=== PATIENT | male | born 1975 | race Caucasian/White ===

== ENCOUNTER 2017-10-31 22:57 | Emergency (ER) | payer OTHER ==
[~2017-10-31 22:57] MED LIST: CALC500T6 PO; DIPH-740 PO; IBUP200C71 PO; MULT1TAB64 PO; QUET25TA30 PO
--- NOTE | 2017-10-31 23:02 | ER Report ---
History and Physical Time Seen By MD: 23:01 HPI/ROS CHIEF COMPLAINT: Right lower quadrant pain HISTORY OF PRESENT ILLNESS: 42-year-old male presents ambulatory to the ER complaining of severe right lower quadrant abdominal pain sudden onset 45 minutes prior to arrival. Patient was in the bathroom, had a bowel movement. And then had a sudden onset upon getting up of sudden sharp right lower quadrant abdominal pain. Patient had drenching sweats and nausea. He had some dry heaves. Patient's concerned he may have appendicitis. Patient notes the pain radiates to his right flank. REVIEW OF SYSTEMS: Respiratory: No cough, no dyspnea. Cardiovascular: No chest pain, no palpitations. Gastrointestinal: As above Musculoskeletal: As above Allergies: Coded Allergies: No Known Drug Allergies (Unverified , 10/31/17) Home Meds Active Scripts Tamsulosin Hcl (FLOMAX) 0.4 Mg Cap.er.24h, 0.4 MG PO QHS for ureteral relaxation , #15 CAP Prov:RHONDA SHANKAR DO 11/01/17 Ondansetron (ZOFRAN ODT) 4 Mg Tab.rapdis, 4 MG PO every 6 hours Y for NAUSEA/ VOMITING, #12 TAB TAKE 1 TABLET BY MOUTH EVERY 12 HOURS Prov:RHONDA SHANKAR DO 11/01/17 Hydrocodone Bit/Acetaminophen (NORCO 5-325 TABLET) 1 Each Tablet, 1-2 EACH PO Q4H Y for PAIN, #15 TAB Prov:RHONDA SHANKAR DO 11/01/17 Discontinued Reported Medications Ibuprofen (IBUPROFEN) 200 Mg Capsule, 1 CAP PO Q6H, CAPSULE 10/30/16 Calcium Carbonate (CALCIUM) 500 Mg Tablet, 500 MG PO 10/30/16 Multivitamin (MULTI VITAMIN DAILY) 1 Each Tablet, 1 EACH PO 10/30/16 Diphenhydramine Hcl (BENADRYL) 25 Mg Capsule, 25 MG PO Q6-8H, CAPSULE 10/30/16 Quetiapine Fumarate (SEROQUEL) 25 Mg Tablet, 25 MG PO 10/30/16 Reviewed Nurses Notes: Yes Old Medical Records Reviewed: Yes Constitutional Vital Sign - Last 24 Hours 10/31/17 10/31/17 10/31/17 10/31/17 23:03 23:03 23:20 23:27 Temp 97.7 Pulse 60 53 Resp 16 B/P (MAP) 165/88 (113) 165/88 155/86 (109) Pulse Ox 99 93 O2 Delivery Room Air 10/31/17 10/31/17 10/31/17 10/31/17 23:30 23:35 23:45 23:50 Pulse 54 60 B/P (MAP) 153/94 (113) 123/87 (99) Pulse Ox 96 94 10/31/17 11/01/17 11/01/17 11/01/17 23:55 00:15 00:20 00:30 Pulse 70 61 B/P (MAP) 151/77 (101) 128/93 (105) Pulse Ox 94 96 11/01/17 11/01/17 11/01/17 11/01/17 00:35 00:40 00:52 00:55 Pulse 58 58 57 B/P (MAP) 141/85 (103) Pulse Ox 92 93 94 11/01/17 01:00 B/P (MAP) 132/83 (99) Physical Exam General Appearance: The patient is alert, has no immediate need for airway protection and no current signs of toxicity. Slightly pale appearing, vital signs stable, mildly tachycardic, afebrile, pulse ox normal HEENT: Pupils equal and round no injection. TMs normal, oropharynx without redness or exudate Respiratory: Chest is non tender, lungs are clear to auscultation. Cardiac: regular rate and rhythm Gastrointestinal: Abdomen is soft and non tender, no masses, bowel sounds normal. Musculoskeletal: Neck: Neck is supple and non tender. Extremities have full range of motion and are non tender. Skin: No rashes or lesions. DIFFERENTIAL DIAGNOSIS: After history and physical exam differential diagnosis was considered for flank pain including but not limited to musculoskeletal causes, kidney stone, pyelonephritis, shingles, and intra-abdominal causes such as diverticulitis and appendicitis. Additionally,abdominal pain including but not limited to appendicitis, cholecystitis, gastritis and urinary tract infection. Medical Decision Making Data Points Result Diagram: 10/31/172 10/31/172 Laboratory Hematology Test 10/31/17 23:12 10/31/17 23:31 Red Blood Count 5.68 M/uL (4.00-5.60) Mean Corpuscular Volume 85.2 fL (80.0-96.0) Mean Corpuscular Hemoglobin 29.5 pg (26.0-33.0) Mean Corpuscular Hemoglobin Concent 34.6 g/dL (32.0-36.0) Red Cell Distribution Width 12.5 % (11.5-14.5) Mean Platelet Volume 8.8 fL (7.2-11.1) Neutrophils (%) (Auto) 53.7 % (39.4-72.5) Lymphocytes (%) (Auto) 37.6 % (17.6-49.6) Monocytes (%) (Auto) 6.6 % (4.1-12.4) Eosinophils (%) (Auto) 1.3 % (0.4-6.7) Basophils (%) (Auto) 0.8 % (0.3-1.4) Nucleated RBC Relative Count (auto) 0.0 /100WBC Neutrophils # (Auto) 8.0 K/uL (2.0-7.4) Lymphocytes # (Auto) 5.6 K/uL (1.3-3.6) Monocytes # (Auto) 1.0 K/uL (0.3-1.0) Eosinophils # (Auto) 0.2 K/uL (0.0-0.5) Basophils # (Auto) 0.1 K/uL (0.0-0.1) Nucleated RBC Absolute Count (auto) 0.00 K/uL Sodium Level 141 mmol/L (137-145) Potassium Level 3.5 mmol/L (3.5-5.0) Chloride Level 100 mmol/L (98-107) Carbon Dioxide Level 26 mmol/L (22-30) Blood Urea Nitrogen 18 mg/dl (9-21) Creatinine 1.20 mg/dl (0.66-1.25) Glomerular Filtration Rate Calc > 60.0 Random Glucose 133 mg/dl (75-110) Calcium Level 10.7 mg/dl (8.4-10.2) Total Bilirubin 0.8 mg/dl (0.2-1.3) Aspartate Amino Transf (AST/SGOT) 20 U/L (0-35) Alanine Aminotransferase (ALT/SGPT) 35 U/L (0-56) Alkaline Phosphatase 63 U/L (0-126) Total Protein 7.8 gm/dl (6.3-8.2) Albumin 4.7 g/dl (3.5-5.0) Amylase Level 97 U/L (0-110) Lipase 152 U/L (23-300) Urine Color Yellow Urine Clarity Clear Urine pH 5.0 pH (4.8-9.5) Urine Specific [place] 1.015 Urine Protein Negative mg/dL (NEGATIVE) Urine Glucose (UA) Negative mg/dL (NEGATIVE) Urine Ketones Negative mg/dL (NEGATIVE) Urine Blood Moderate (NEGATIVE) Urine Nitrite Negative (NEGATIVE) Urine Bilirubin Negative (NEGATIVE) Urine Urobilinogen Negative mg/dL (0.2-1.9) Urine Leukocyte Esterase Negative (NEGATIVE) Urine RBC 141 /HPF (0-2/HPF) Urine WBC 1 /HPF (0-5/HPF) Urine Squamous Epithelial Cells None /LPF (</=FEW) Urine Bacteria Negative /HPF (NONE-FEW) Urine Mucus None /HPF (NONE-FEW) Chemistry Test 10/31/17 23:12 10/31/17 23:31 White Blood Count 14.9 k/uL (4.5-11.0) Red Blood Count 5.68 M/uL (4.00-5.60) Hemoglobin 16.8 g/dL (14.0-18.0) Hematocrit 48.4 % (42.0-52.0) Mean Corpuscular Volume 85.2 fL (80.0-96.0) Mean Corpuscular Hemoglobin 29.5 pg (26.0-33.0) Mean Corpuscular Hemoglobin Concent 34.6 g/dL (32.0-36.0) Red Cell Distribution Width 12.5 % (11.5-14.5) Platelet Count 334 K/uL (150-450) Mean Platelet Volume 8.8 fL (7.2-11.1) Neutrophils (%) (Auto) 53.7 % (39.4-72.5) Lymphocytes (%) (Auto) 37.6 % (17.6-49.6) Monocytes (%) (Auto) 6.6 % (4.1-12.4) Eosinophils (%) (Auto) 1.3 % (0.4-6.7) Basophils (%) (Auto) 0.8 % (0.3-1.4) Nucleated RBC Relative Count (auto) 0.0 /100WBC Neutrophils # (Auto) 8.0 K/uL (2.0-7.4) Lymphocytes # (Auto) 5.6 K/uL (1.3-3.6) Monocytes # (Auto) 1.0 K/uL (0.3-1.0) Eosinophils # (Auto) 0.2 K/uL (0.0-0.5) Basophils # (Auto) 0.1 K/uL (0.0-0.1) Nucleated RBC Absolute Count (auto) 0.00 K/uL Glomerular Filtration Rate Calc > 60.0 Calcium Level 10.7 mg/dl (8.4-10.2) Total Bilirubin 0.8 mg/dl (0.2-1.3) Aspartate Amino Transf (AST/SGOT) 20 U/L (0-35) Alanine Aminotransferase (ALT/SGPT) 35 U/L (0-56) Alkaline Phosphatase 63 U/L (0-126) Total Protein 7.8 gm/dl (6.3-8.2) Albumin 4.7 g/dl (3.5-5.0) Amylase Level 97 U/L (0-110) Lipase 152 U/L (23-300) Urine Color Yellow Urine Clarity Clear Urine pH 5.0 pH (4.8-9.5) Urine Specific [place] 1.015 Urine Protein Negative mg/dL (NEGATIVE) Urine Glucose (UA) Negative mg/dL (NEGATIVE) Urine Ketones Negative mg/dL (NEGATIVE) Urine Blood Moderate (NEGATIVE) Urine Nitrite Negative (NEGATIVE) Urine Bilirubin Negative (NEGATIVE) Urine Urobilinogen Negative mg/dL (0.2-1.9) Urine Leukocyte Esterase Negative (NEGATIVE) Urine RBC 141 /HPF (0-2/HPF) Urine WBC 1 /HPF (0-5/HPF) Urine Squamous Epithelial Cells None /LPF (</=FEW) Urine Bacteria Negative /HPF (NONE-FEW) Urine Mucus None /HPF (NONE-FEW) Urinalysis Test 10/31/17 23:31 Urine Color Yellow Urine Clarity Clear Urine pH 5.0 pH (4.8-9.5) Urine Specific [place] 1.015 Urine Protein Negative mg/dL (NEGATIVE) Urine Glucose (UA) Negative mg/dL (NEGATIVE) Urine Ketones Negative mg/dL (NEGATIVE) Urine Blood Moderate (NEGATIVE) Urine Nitrite Negative (NEGATIVE) Urine Bilirubin Negative (NEGATIVE) Urine Urobilinogen Negative mg/dL (0.2-1.9) Urine Leukocyte Esterase Negative (NEGATIVE) Urine RBC 141 /HPF (0-2/HPF) Urine WBC 1 /HPF (0-5/HPF) Urine Squamous Epithelial Cells None /LPF (</=FEW) Urine Bacteria Negative /HPF (NONE-FEW) Urine Mucus None /HPF (NONE-FEW) EKG/Imaging Imaging Results: CT scan of the abdomen and pelvis with IV contrast was obtained. The results of the study are CT of the abdomen and pelvis with contrast: Indication: Right lower quadrant pain and hematuria. Technique: Helical CT was performed through the abdomen and pelvis following IV contrast enhancement with 75 cc of Isovue-370. Multiplanar reconstructions are reviewed. One of the following dose optimization techniques was utilized in the performance of this exam: Automated exposure control; adjustment of the mA and/ or kV according to the patient's size; or use of an iterative reconstruction technique. Specific details can be referenced in the facility's radiology CT exam operational policy. Comparison: None. Lower lung ferrell: No parenchymal or pleural abnormality is identified. Liver: Enlarged. The right lobe measures 20.3 cm. There is diffuse mild atrophy infiltration. No focal liver lesions are identified. There is uniform enhancement of the venous structures. Gallbladder/biliary tree: The gallbladder is normal in size and homogeneous in density. The bile ducts are normal in caliber. Pancreas: Normal in size, shape, and density. Spleen: Normal in size, shape, and density. Adrenal glands: Within normal limits. Kidneys/urinary bladder: There is a 3 x 3 mm calculus in the distal right ureter close to the ureterovesical junction, with mild ureteral obstruction. No additional calculi are identified in the right ureter or kidney. The right kidney appears unremarkable. There is a 5 x 3 mm calculus in the proximal left ureter, without signs of significant obstruction. An additional tiny nonobstructing calculus is present in the left kidney. The left kidney is otherwise unremarkable. The bladder appears homogeneous and unremarkable. Intestinal structures: Unremarkable, as visualized. There are no signs of obstruction or acute inflammatory changes. The appendix appears normal. Pelvis: Otherwise unremarkable. Aorta and vascular structures: Within normal limits. Ascites or fluid collections: None seen. Skeletal structures: There is a chronic appearing mild compression deformity of the T12 vertebral body. No acute skeletal deformity is clearly identified. Impression: Bilateral ureteral calculi, as described above. There is evidence of mild obstruction on the right. The appendix appears normal. The study was read by the radiologist. I viewed the images myself on the PACS system. ED Course/Re-evaluation Clinical Indication for ER IV: Hydration, IV Access ED Course Patient was admitted to an examination room. H&P was done. The dental diagnoses was considered. Patient with severe flank and right lower quadrant pain, sudden onset 45 minutes prior to arrival. The patient has a renal stone. Do not think appendicitis, with 45 minutes of pain. Does have severe nausea but no vomiting. Patient has no previous medical history or history abdominal surgeries. Patient's treated with peripheral IV. He is medicated with Zofran, Toradol, Dilaudid. Diagnostic studies show microscopic hematuria and a white blood cell count of nearly 15,000. Patient sent for a CT scan of the abdomen and pelvis with IV contrast. It shows a 3 mm stone at the UVJ on the right with mild hydronephrosis. Patient also has stones noted in the left ureter and kidney without evidence of obstruction. Patient be discharged home on Zofran and [place]. Patient is also given a prescription for Flomax. He is advised to follow-up with urology if unimproved. Decision to Disposition Date: November 01, 2017 Decision to Disposition Time: 00:58 Depart Departure Latest Vital Signs Vital Signs Date Time Temp Pulse Resp B/P (MAP) Pulse Ox O2 Delivery O2 Flow Rate FiO2 11/01/17 01:00 132/83 (99) 11/01/17 00:55 57 94 10/31/17 23:03 97.7 16 Room Air Impression: Primary Impression: Renal colic on right side Additional Impression: Kidney stone Condition: Improved Disposition: HOME OR SELF-CARE New Scripts Tamsulosin Hcl (FLOMAX) 0.4 Mg Cap.er.24h 0.4 MG PO QHS for ureteral relaxation, #15 CAP Prov: RHONDA SHANKAR DO 11/01/17 Ondansetron (ZOFRAN ODT) 4 Mg Tab.rapdis 4 MG PO every 6 hours Y for NAUSEA/VOMITING, #12 TAB TAKE 1 TABLET BY MOUTH EVERY 12 HOURS Prov: RHONDA SHANKAR DO 11/01/17 Hydrocodone Bit/Acetaminophen (NORCO 5-325 TABLET) 1 Each Tablet 1-2 EACH PO Q4H Y for PAIN, #15 TAB Prov: RHONDA SHANKAR DO 11/01/17 Patient Instructions: Kidney Stones (ED) Additional Instructions: Take ibuprofen 200 mg 3 tablets 3 times a day for inflammatory pain relief Follow-up with urology if unimproved in 3-5 days. Problem Qualifiers RHONDA SHANKAR DO October 31, 2017 23:02
[2017-10-31] MEDS ORDERED: NS(*) 0.9% 1000 ML BAG 1,000 ML IV ONE (23:08)
[2017-10-31] MEDS ORDERED: ONDANSETRON 4 MG/2 ML VIAL IVP ONE (23:10)
[2017-10-31] MEDS ORDERED: KETOROLAC 30 MG/ML VIAL IVP ONE (23:10)
[2017-10-31] MEDS ORDERED: HYDROmorphone* 1 MG/ML 1 MG/ML ML IVP ONE (23:10)
[2017-10-31 23:20] LABS: PLATELET COUNT, AUTOMATED 334 K/uL (150-450)
[2017-11-01] MEDS ORDERED: IOPAMIDOL 76% 75 ML INFUS BTL 75 ML ONE (00:01)
[2017-11-01] MEDS ORDERED: HYDROmorphone* 1 MG/ML 1 MG/ML ML IVP ONE (00:50)
--- NOTE | 2017-11-01 00:50 | RADIOLOGY IMAGING REPORT ---
FACILITY: [facility] - [place] PATIENT NAME: Davon Hall : 1975 MR: [id number] V: [id number] EXAM DATE: ORDERING PHYSICIAN: RHONDA SHANKAR TECHNOLOGIST: Location: [facility] - [place] Patient: Davon Hall : 1975 Visit/Account:[id number] Date of Sevice: 10/31/2017 CT of the abdomen and pelvis with contrast: Indication: Right lower quadrant pain and hematuria. Technique: Helical CT was performed through the abdomen and pelvis following IV contrast enhancement with 75 cc of Isovue-370. Multiplanar reconstructions are reviewed. One of the following dose optimization techniques was utilized in the performance of this exam: Autom ated exposure control; adjustment of the mA and/or kV according to the patient's size; or use of an i terative reconstruction technique. Specific details can be referenced in the facility's radiology C T exam operational policy. Comparison: None. Lower lung ferrell: No parenchymal or pleural abnormality is identified. Liver: Enlarged. The right lobe measures 20.3 cm. There is diffuse mild atrophy infiltration. No foca l liver lesions are identified. There is uniform enhancement of the venous structures. Gallbladder/biliary tree: The gallbladder is normal in size and homogeneous in density. The bile duct s are normal in caliber. Pancreas: Normal in size, shape, and density. Spleen: Normal in size, shape, and density. Adrenal glands: Within normal limits. Kidneys/urinary bladder: There is a 3 x 3 mm calculus in the distal right ureter close to the uretero vesical junction, with mild ureteral obstruction. No additional calculi are identified in the right u reter or kidney. The right kidney appears unremarkable. There is a 5 x 3 mm calculus in the proximal left ureter, without signs of significant obstruction. A n additional tiny nonobstructing calculus is present in the left kidney. The left kidney is otherwise unremarkable. The bladder appears homogeneous and unremarkable. Intestinal structures: Unremarkable, as visualized. There are no signs of obstruction or acute inflam matory changes. The appendix appears normal. Pelvis: Otherwise unremarkable. Aorta and vascular structures: Within normal limits. Ascites or fluid collections: None seen. Skeletal structures: There is a chronic appearing mild compression deformity of the T12 vertebral bod y. No acute skeletal deformity is clearly identified. Impression: Bilateral ureteral calculi, as described above. There is evidence of mild obstruction on the right. The appendix appears normal. Report Dictated By: Gatito Martinez MD at 11/01/2017 12:28 AM Report E-Signed By: Gatito Martinez MD at 11/01/2017 12:47 AM WSN:[id number]
[2017-11-01 01:00] VITALS: BP 132/83
[2017-11-01] MEDS ORDERED: HYDR-4309 PO (01:00)
[2017-11-01] MEDS ORDERED: ONDA4TAB PO (01:00)
[2017-11-01] MEDS ORDERED: TAMS0.4C25 PO (01:02)
[2017-11-01] MEDS ORDERED: ONDANSETRON 4 MG ODT TH SL ONE (01:10)
[2017-11-01] MEDS ORDERED: ACET/HYDROC 5/325MG TH ER ONLY 2 TAB/BOTTLE PO ONE (01:10)
== END 2017-11-01 01:20 | disposition home or self-care (01) ==
LOC: ER 23:02
DX: N23 Unspecified renal colic (principal); N20.0 Calculus of kidney
CPT/HCPCS: 74177; 81001; 82150; 83690; 85025; 96361; 96374; 96375; 96376; 99284; J1170; J1885; J2405; J7030; Q9967; S0119; 82040; 82247; 82310; 82374; 82435; 82565; 82947; 84075; 84132; 84155; 84295; 84450; 84460; 84520